=== PATIENT | female | born 1935 | race Two or more races ===

== ENCOUNTER 2018-06-13 20:09 | Emergency (ER) | payer MEDICARE, OTHER ==
[~2018-06-13] VITALS: Ht 154.9 cm; Wt 68.5 kg
[2018-06-13] MEDS ORDERED: IV NORMAL SALINE 1000ML BAG 1,000 ML IV ONE ×2 (20:45→22:45)
[2018-06-13] MEDS ORDERED: ONDANSETRON PF 4 MG/2 ML VIAL. IV ONE (20:45)
[2018-06-13] MEDS ORDERED: MORPHINE SULFATE 4 MG/ML VIAL. IV ONE (20:45)
[2018-06-13 20:50] LABS: BASO % 0 % (0-3); EOS % 0 % (0-3); HEMATOCRIT 30.8 % (36.0-47.0); HEMOGLOBIN 10.1 g/dL (12.0-15.5); LYMPH # 0.7 x10^3/uL (1.0-4.8); LYMPH % 7 % (24-48); MEAN CORPUSCULAR HEMOGLOBIN 29 pg (25-35); MEAN CORPUSCULAR HGB CONC 33 g/dL (31-37); MEAN CORPUSCULAR VOLUME 89 fL (79-100); MONO # 0.6 x10^3/uL (0.0-1.1); MONO % 6 % (0-9); NEUT # 7.9 x10^3uL (1.8-7.7); NEUT % 86 % (31-73); PLATELET COUNT 184 x10^3/uL (140-400); RED BLOOD COUNT 3.46 x10^6/uL (3.50-5.40); RED CELL DISTRIBUTION WIDTH 18.6 % (11.5-14.5); WHITE BLOOD COUNT 9.2 x10^3/uL (4.0-11.0)
[2018-06-13 21:05] LABS: CALCIUM 9.6 mg/dL (8.5-10.1); CREATININE 1.2 mg/dL (0.6-1.0); POTASSIUM 4.5 mmol/L (3.5-5.1)
[2018-06-13 21:12] LABS: ALBUMIN 2.5 g/dL (3.4-5.0); ALBUMIN/GLOBULIN RATIO 0.6 (1.0-1.7); TOTAL BILIRUBIN 0.6 mg/dL (0.2-1.0); TOTAL PROTEIN 6.7 g/dL (6.4-8.2)
[2018-06-13 21:21] LABS: CREATINE KINASE 35 U/L (26-192)
[2018-06-13 21:22] LABS: % BANDS 1 % (0-9); % LYMPHS 7 % (24-48); % METAS 1 % (0-0); % MONOS 3 % (0-10); % MYELOS 1 % (0-0); % SEGS 87 % (35-66); ANISOCYTOSIS SLIGHT; HYPOCHROMIA SLIGHT; NUCLEATED RBC 3; PLT ESTIMATE ADEQUATE (ADEQUATE); POIKILOCYTOSIS SLIGHT; POLYCHROMASIA SLIGHT; SPHEROCYTES OCC
[2018-06-13 21:23] LABS: ACANTHOCYTES OCC; HELMET CELLS OCC; HYPERSEGS PRESENT; SCHISTOCYTES OCC; TOXIC GRANULATION SLIGHT
[2018-06-13] MEDS ORDERED: MORPHINE SULFATE 10 MG/ML VIAL. IV ONE (21:30)
[2018-06-13] MEDS ORDERED: IOHEXOL 300 MG/ML 100ML VIAL. IV ONE (22:15)
[2018-06-13] MEDS ORDERED: CONTRAST GIVEN. MC PRN (22:15)
--- NOTE | 2018-06-13 22:21 | RAD ---
CT SCAN OF THE ABDOMEN AND PELVIS WITH IV CONTRAST. History: Right upper quadrant abdominal pain and pancreatic cancer Comparison:None. Procedure: Contiguous axial images of the abdomen and pelvis were performed after the administration of 60 cc of Omni 300 IV contrast and without oral contrast. CT Abdomen with contrast: Findings: There is previous median sternotomy. There is mild pleural effusions with adjacent infiltrates. The heart is dilated. There is a small amount of fluid around the liver and there is mild free air seen in the abdomen. There is mild pneumobilia in the liver and there is a stent in the common bile duct. There is a stent in the duodenum. There is a pancreatic head mass which is not well seen however there is loss of fat soft tissue planes around the pancreatic head is moderately dilated pancreatic duct. Body and tail of pancreas mildly atrophic. There are small cysts in the kidneys. The spleen is not well seen and likely removed. The small amount of fluid in the splenic bed. The proximal small bowel is dilated. The distal small bowel is collapsed and there is a fairly normal caliber of the colon. Exact transition zone is not seen. CT Pelvis with Contrast: Findings: The urinary bladder appears normal. There is mild free fluid. There is no lymphadenopathy. Impression: 1. Mid small bowel obstruction. 2. Mild free fluid and mild free air in the abdomen and pelvis likely secondary to a ruptured hollow viscus. Given the small bowel obstruction this is likely secondary to perforation of the small bowel. 3. Pancreatic head mass and stent in the common bile duct and duodenum. 4. Mild pleural effusions with adjacent infiltrates and dilated cardiomegaly. PQRS Compliance Statement: One or more of the following individualized dose reduction techniques were utilized for this examination: 1. Automated exposure control 2. Adjustment of the mA and/or kV according to patient size 3. Use of iterative reconstruction technique Electronically signed by: Cristobal Barrett III, MD (06/13/2018 10:17 PM) [facility]
[2018-06-13] MEDS ORDERED: fentaNYL PF VIAL 100 MCG/2 ML VIAL ONE (22:25)
[2018-06-13] MEDS ORDERED: PIPERACILLIN/TAZOBACTAM 3.375 GM in IV NORMAL SALINE 50ML 50 ML IV ONE (22:45)
[2018-06-13] MEDS ORDERED: HYDROmorphone 2 MG/ML VIAL IV ONE (22:45)
[2018-06-13] MEDS ORDERED: LABETALOL 20 MG/4 ML DISP.SYRIN. IVP ONE (22:45)
[2018-06-13] MEDS ORDERED: VANCOMYCIN 1.75 GM in IV NORMAL SALINE 500ML BAG 500 ML IV ONE (23:00)
[2018-06-13 23:42] VITALS: BP 52/26
[2018-06-13 23:56] LABS: PROTHROMBIN TIME PATIENT 15.2 SEC (11.7-14.0)
--- NOTE | 2018-06-13 23:56 | PDOC2 ---
CONSULT Date of Consult Date of Consult DATE: 06/13/18 TIME: 23:48 History of Present Illness Reason for Visit: The patient is an 83 year old female who reported to the ER due to acute abdominal pain. The pain became severe this evening, however the family states that she has been having problems with abdominal pain since March. She has inoperable pancreatic head cancer and is getting treated at . She had 2 stents placed apparently in the bile duct and duodenum. Since the second stent was placed she has had difficulty with eating and intermittent abdominal pain. She has also been receiving chemotherapy treatments. Past Medical History Past Medical History Pancreatic cancer, CAD Past Surgical History Past Surgical History CABG, biliary and duodenal stents Current Medications Current Medications Current Medications Sodium Chloride 1,000 ml @ 1,000 mls/hr 1X ONCE IV Last administered on 06/13/18at 20:51; Start 06/13/18 at 20:45; Stop 06/13/18 at 21:45; Status DC Morphine Sulfate (Morphine Sulfate) 4 mg 1X ONCE IV Last administered on 06/13/18at 20:50; Start 06/13/18 at 20:45; Stop 06/13/18 at 21:45; Status DC Ondansetron HCl (Zofran) 4 mg 1X ONCE IV Last administered on 06/13/18at 20:50; Start 06/13/18 at 20:45; Stop 06/13/18 at 21:45; Status DC Morphine Sulfate (Morphine Sulfate) 5 mg 1X ONCE IV Last administered on 06/13/18at 21:39; Start 06/13/18 at 21:30; Stop 06/13/18 at 21:45; Status DC Iohexol (Omnipaque 300 Mg/ml) 60 ml 1X ONCE IV Last administered on 06/13/18at 22:05; Start 06/13/18 at 22:15; Stop 06/13/18 at 22:16; Status DC Info (CONTRAST GIVEN -- Rx MONITORING) 1 each PRN DAILY PRN MC SEE COMMENTS; Start 06/13/18 at 22:15; Stop 06/15/18 at 22:14 Fentanyl Citrate (Fentanyl 2ml Vial) 100 mcg STK-MED ONCE .ROUTE ; Start 06/13/18 at 22:25; Stop 06/13/18 at 22:26; Status DC Labetalol HCl (Normodyne Iv Push) 10 mg 1X ONCE IVP ; Start 06/13/18 at 22:45; Stop 06/13/18 at 22:46; Status DC Piperacillin Sod/ Tazobactam Sod 3.375 gm/Sodium Chloride 50 ml @ 100 mls/hr 1X ONCE IV Last administered on 06/13/18at 23:00; Start 06/13/18 at 22:45; Stop 06/13/18 at 23:14; Status DC Vancomycin HCl (Vanco Per Pharmacy) 1 each PRN DAILY PRN MC SEE COMMENTS; Start 06/13/18 at 22:45; Status UNV Sodium Chloride 1,000 ml @ 125 mls/hr 1X ONCE IV ; Start 06/13/18 at 22:45; Stop 06/14/18 at 06:44 Hydromorphone HCl (Dilaudid) 1 mg 1X ONCE IV Last administered on 06/13/18at 22:55; Start 06/13/18 at 22:45; Stop 06/13/18 at 22:46; Status DC Vancomycin HCl 1.75 gm/Sodium Chloride 500 ml @ 250 mls/hr 1X ONCE IV Last administered on 06/13/18at 23:25; Start 06/13/18 at 23:00; Stop 06/14/18 at 00:59 Allergies Allergies: Coded Allergies: atorvastatin (Verified Allergy, Intermediate, 06/13/18) ezetimibe (Verified Allergy, Intermediate, 06/13/18) simvastatin (Verified Allergy, Intermediate, 06/13/18) Uncoded Allergies: DERMABOND (Allergy, Unknown, 06/13/18) ROS Review of System difficult to obtain, patient is severely ill and unable to provide ROS Physical Exam General: severe distress HEENT: Atraumatic Lungs: Clear to auscultation Heart: Regular rate Abdomen: Other (diffusely tender, peritoneal signs) Extremities: No clubbing, No cyanosis Skin: No rashes Neuro: Other (minimal speech) Vitals VITALS Vital Signs Date Time Temp Pulse Resp B/P (MAP) Pulse Ox O2 Delivery O2 Flow Rate FiO2 06/13/18 22:55 100 06/13/18 20:50 21 Room Air 06/13/18 20:15 98.4 70 223/100 (141) 98.4 Labs Labs Laboratory Tests Test 06/13/18 20:30 White Blood Count 9.2 x10^3/uL (4.0-11.0) Red Blood Count 3.46 x10^6/uL (3.50-5.40) Hemoglobin 10.1 g/dL (12.0-15.5) Hematocrit 30.8 % (36.0-47.0) Mean Corpuscular Volume 89 fL (79-100) Mean Corpuscular Hemoglobin 29 pg (25-35) Mean Corpuscular Hemoglobin Concent 33 g/dL (31-37) Red Cell Distribution Width 18.6 % (11.5-14.5) Platelet Count 184 x10^3/uL (140-400) Neutrophils (%) (Auto) 86 % (31-73) Lymphocytes (%) (Auto) 7 % (24-48) Monocytes (%) (Auto) 6 % (0-9) Eosinophils (%) (Auto) 0 % (0-3) Basophils (%) (Auto) 0 % (0-3) Neutrophils # (Auto) 7.9 x10^3uL (1.8-7.7) Lymphocytes # (Auto) 0.7 x10^3/uL (1.0-4.8) Monocytes # (Auto) 0.6 x10^3/uL (0.0-1.1) Eosinophils # (Auto) 0.0 x10^3/uL (0.0-0.7) Basophils # (Auto) 0.0 x10^3/uL (0.0-0.2) Segmented Neutrophils % 87 % (35-66) Band Neutrophils % 1 % (0-9) Lymphocytes % 7 % (24-48) Monocytes % 3 % (0-10) Metamyelocytes % 1 % (0-0) Myelocytes % 1 % (0-0) Nucleated Red Blood Cells 3 Hypersegmented Neutrophils Present Toxic Granulation Slight Platelet Estimate Adequate (ADEQUATE) Polychromasia Slight Hypochromasia Slight Poikilocytosis Slight Anisocytosis Slight Spherocytes Occ Helmet Cells Occ Ashanti Cells Acanthocytes Occ Schistocytes Occ Sodium Level 135 mmol/L (136-145) Potassium Level 4.5 mmol/L (3.5-5.1) Chloride Level 98 mmol/L (98-107) Carbon Dioxide Level 26 mmol/L (21-32) Anion Gap 11 (6-14) Blood Urea Nitrogen 26 mg/dL (7-20) Creatinine 1.2 mg/dL (0.6-1.0) Estimated GFR (Cockcroft-Gault) 43.0 BUN/Creatinine Ratio 22 (6-20) Glucose Level 157 mg/dL (70-99) Lactic Acid Level 1.5 mmol/L (0.4-2.0) Calcium Level 9.6 mg/dL (8.5-10.1) Magnesium Level 2.0 mg/dL (1.8-2.4) Total Bilirubin 0.6 mg/dL (0.2-1.0) Aspartate Amino Transf (AST/SGOT) 33 U/L (15-37) Alanine Aminotransferase (ALT/SGPT) 35 U/L (14-59) Alkaline Phosphatase 101 U/L (46-116) Creatine Kinase 35 U/L (26-192) Creatine Kinase MB (Mass) 0.9 ng/mL (0.0-3.6) Creatine Kinase MB Relative Index % (0-4) Troponin I Quantitative 0.034 ng/mL (0.000-0.055) GY-Iwq-E-Type Natriuretic Peptide 6584 pg/mL (0-449) Total Protein 6.7 g/dL (6.4-8.2) Albumin 2.5 g/dL (3.4-5.0) Albumin/Globulin Ratio 0.6 (1.0-1.7) Lipase 92 U/L (73-393) Laboratory Tests Test 06/13/18 20:30 White Blood Count 9.2 x10^3/uL (4.0-11.0) Red Blood Count 3.46 x10^6/uL (3.50-5.40) Hemoglobin 10.1 g/dL (12.0-15.5) Hematocrit 30.8 % (36.0-47.0) Mean Corpuscular Volume 89 fL (79-100) Mean Corpuscular Hemoglobin 29 pg (25-35) Mean Corpuscular Hemoglobin Concent 33 g/dL (31-37) Red Cell Distribution Width 18.6 % (11.5-14.5) Platelet Count 184 x10^3/uL (140-400) Neutrophils (%) (Auto) 86 % (31-73) Lymphocytes (%) (Auto) 7 % (24-48) Monocytes (%) (Auto) 6 % (0-9) Eosinophils (%) (Auto) 0 % (0-3) Basophils (%) (Auto) 0 % (0-3) Neutrophils # (Auto) 7.9 x10^3uL (1.8-7.7) Lymphocytes # (Auto) 0.7 x10^3/uL (1.0-4.8) Monocytes # (Auto) 0.6 x10^3/uL (0.0-1.1) Eosinophils # (Auto) 0.0 x10^3/uL (0.0-0.7) Basophils # (Auto) 0.0 x10^3/uL (0.0-0.2) Segmented Neutrophils % 87 % (35-66) Band Neutrophils % 1 % (0-9) Lymphocytes % 7 % (24-48) Monocytes % 3 % (0-10) Metamyelocytes % 1 % (0-0) Myelocytes % 1 % (0-0) Nucleated Red Blood Cells 3 Hypersegmented Neutrophils Present Toxic Granulation Slight Platelet Estimate Adequate (ADEQUATE) Polychromasia Slight Hypochromasia Slight Poikilocytosis Slight Anisocytosis Slight Spherocytes Occ Helmet Cells Occ Ashanti Cells Acanthocytes Occ Schistocytes Occ Sodium Level 135 mmol/L (136-145) Potassium Level 4.5 mmol/L (3.5-5.1) Chloride Level 98 mmol/L (98-107) Carbon Dioxide Level 26 mmol/L (21-32) Anion Gap 11 (6-14) Blood Urea Nitrogen 26 mg/dL (7-20) Creatinine 1.2 mg/dL (0.6-1.0) Estimated GFR (Cockcroft-Gault) 43.0 BUN/Creatinine Ratio 22 (6-20) Glucose Level 157 mg/dL (70-99) Lactic Acid Level 1.5 mmol/L (0.4-2.0) Calcium Level 9.6 mg/dL (8.5-10.1) Magnesium Level 2.0 mg/dL (1.8-2.4) Total Bilirubin 0.6 mg/dL (0.2-1.0) Aspartate Amino Transf (AST/SGOT) 33 U/L (15-37) Alanine Aminotransferase (ALT/SGPT) 35 U/L (14-59) Alkaline Phosphatase 101 U/L (46-116) Creatine Kinase 35 U/L (26-192) Creatine Kinase MB (Mass) 0.9 ng/mL (0.0-3.6) Creatine Kinase MB Relative Index % (0-4) Troponin I Quantitative 0.034 ng/mL (0.000-0.055) FV-Bqa-I-Type Natriuretic Peptide 6584 pg/mL (0-449) Total Protein 6.7 g/dL (6.4-8.2) Albumin 2.5 g/dL (3.4-5.0) Albumin/Globulin Ratio 0.6 (1.0-1.7) Lipase 92 U/L (73-393) Images Images CT abdomen/pelvis: Impression: 1. Mid small bowel obstruction. 2. Mild free fluid and mild free air in the abdomen and pelvis likely secondary to a ruptured hollow viscus. Given the small bowel obstruction this is likely secondary to perforation of the small bowel. 3. Pancreatic head mass and stent in the common bile duct and duodenum. 4. Mild pleural effusions with adjacent infiltrates and dilated cardiomegaly. Assessment/Plan Assessment/Plan 83 year old female, history of inoperable pancreatic head cancer, receiving ch emotherapy, acute abdominal pain with pneumoperitoneum, peritonitis. I discussed the situation with the family and explained the grave prognosis. Generally surgery is recommend for suspected perforated viscus, however given her clinical situation she is very high risk with significant morbidity and potential mortality. If she survived the surgery she could have a prolonged and difficult recovery potentially with healing problems resulting from her recent chemotherapy treatments. The family understands and would like to proceed with surgery. OLIVIA ALEGRIA MD Jun 13, 2018 23:56
--- NOTE | 2018-06-14 00:21 | PHYS DOC ---
Past Medical History Past Medical History: CAD, Cancer, Heart Disease, Hypertension, Pancreatitis Additional Past Medical Histor: PANCREATIC CANCER, CHEMOTHERAPY ONCE A WEEK X3, AND 1 WEEK OFF. (ANITA CAVAZOS APRN) Alcohol Use: None Additional Information: PT DENIES ALCOHOL USE OR SMOKING Drug Use: None (ANITA CAVAZOS APRN) Adult General Chief Complaint Chief Complaint: ABDOMINAL PAIN HPI HPI Patient is a 83 year old female with a history of pancreatic cancer, hypertens ion, who presents to the ED via EMS, most of the information I'm getting is from nursing staff. They state patient has had moderate right sided abdominal pain that began 30 minutes prior to coming to the ED with no BM for three days. Patient appears to be in distress, she is crying stating "i am dying. i am in pain" patient repeating this statement multiple times. She is a very poor historian and not able to give up much information.No family present. (ANITA CAVAZOS APRN) Review of Systems Review of Systems Constitutional: Denies fever or chills [] Eyes: Denies change in visual acuity, redness, or eye pain [] HENT: Denies nasal congestion or sore throat [] Respiratory: Denies cough or shortness of breath [] Cardiovascular: No additional information not addressed in HPI [] GI: Reports abdominal pain denies nausea, vomiting, bloody stools or diarrhea [] : Denies dysuria or hematuria [] Musculoskeletal: Denies back pain or joint pain [] Integument: Denies rash or skin lesions [] Neurologic: Denies headache, focal weakness or sensory changes [] All other systems were reviewed and found to be within normal limits, except as documented in this note. (ANITA CAVAZOS APRN) Current Medications Current Medications Current Medications Medications (Trade) Dose Ordered Sig/Yessi Start Time Stop Time Status Last Admin Dose Admin Fentanyl Citrate (Fentanyl 2ml Vial) 100 mcg STK-MED ONCE 06/13/18 22:25 06/13/18 22:26 DC Hydromorphone HCl (Dilaudid) 1 mg 1X ONCE 06/13/18 22:45 06/13/18 22:46 DC 06/13/18 22:55 1 MG Info (CONTRAST GIVEN -- Rx MONITORING) 1 each PRN DAILY PRN 06/13/18 22:15 06/15/18 22:14 Iohexol (Omnipaque 300 Mg/ml) 60 ml 1X ONCE 06/13/18 22:15 06/13/18 22:16 DC 06/13/18 22:05 60 ML Labetalol HCl (Normodyne Iv Push) 10 mg 1X ONCE 06/13/18 22:45 06/13/18 22:46 DC Morphine Sulfate (Morphine Sulfate) 5 mg 1X ONCE 06/13/18 21:30 06/13/18 21:45 DC 06/13/18 21:39 5 MG Ondansetron HCl (Zofran) 4 mg 1X ONCE 06/13/18 20:45 06/13/18 21:45 DC 06/13/18 20:50 4 MG Piperacillin Sod/ Tazobactam Sod 3.375 gm/Sodium Chloride 50 ml @ 100 mls/hr 1X ONCE 06/13/18 22:45 06/13/18 23:14 DC 06/13/18 23:00 100 MLS/HR Sodium Chloride 1,000 ml @ 125 mls/hr 1X ONCE 06/13/18 22:45 06/14/18 06:44 Vancomycin HCl (Vanco Per Pharmacy) 1 each PRN DAILY PRN 06/13/18 22:45 06/14/18 02:05 1 EACH Vancomycin HCl (Vancomycin Trough Level) 1 each 1X ONCE 06/15/18 23:00 06/15/18 23:01 Vancomycin HCl 1.75 gm/Sodium Chloride 500 ml @ 250 mls/hr 1X ONCE 06/13/18 23:00 06/14/18 00:59 DC 06/13/18 23:25 250 MLS/HR Vancomycin HCl 1 gm/Sodium Chloride 250 ml @ 250 mls/hr Q24H 06/14/18 23:30 (JANN ODEN MD) Allergies Allergies Allergies Coded Allergies Type Severity Reaction Last Updated Verified atorvastatin Allergy Intermediate 06/13/18 Yes ezetimibe Allergy Intermediate 06/13/18 Yes simvastatin Allergy Intermediate 06/13/18 Yes Uncoded Allergies Type Severity Reaction Last Updated Verified DERMABOND Allergy Unknown 06/13/18 (JANN ODEN MD) Physical Exam Physical Exam Constitutional: Well developed, well nourished, no acute distress, non-toxic appearance. [] HENT: Normocephalic, atraumatic, bilateral external ears normal, oropharynx moist, no oral exudates, nose normal. [] Eyes: PERRLA, EOMI, conjunctiva normal, no discharge. [] Neck: Normal range of motion, no tenderness, supple, no stridor. [] Cardiovascular:Heart rate regular rhythm, no murmur. Lungs & Thorax: Bilateral breath sounds clear to auscultation [] Abdomen: Bowel sounds normal, soft, firm abdomen, moderate tenderness diffusely throughout the abdomen was on the lower abdomen no masses, no pulsatile masses. [] Skin: Warm, dry, no erythema, no rash. Port-A-Cath noted to the right upper chest. Back: No tenderness, no CVA tenderness. [] Extremities: No tenderness, no cyanosis, no clubbing, ROM intact, no edema. [] Neurologic: Alert and oriented X 3, normal motor function, normal sensory function, no focal deficits noted. [] Psychologic: Affect normal, judgement normal, mood normal. [] (ANITA CAVAZOS APRN) Current Patient Data Vital Signs Vital Signs Date Time Temp Pulse Resp B/P (MAP) Pulse Ox O2 Delivery O2 Flow Rate FiO2 06/13/18 23:42 66 52/26 (35) 06/13/18 23:25 99 Room Air 06/13/18 21:20 25 06/13/18 20:15 98.4 98.4 (JANN ODEN MD) Lab Values Laboratory Tests Test 06/13/18 20:30 06/13/18 23:40 White Blood Count 9.2 x10^3/uL (4.0-11.0) Red Blood Count 3.46 x10^6/uL (3.50-5.40) L Hemoglobin 10.1 g/dL (12.0-15.5) L Hematocrit 30.8 % (36.0-47.0) L Mean Corpuscular Volume 89 fL (79-100) Mean Corpuscular Hemoglobin 29 pg (25-35) Mean Corpuscular Hemoglobin Concent 33 g/dL (31-37) Red Cell Distribution Width 18.6 % (11.5-14.5) H Platelet Count 184 x10^3/uL (140-400) Neutrophils (%) (Auto) 86 % (31-73) H Lymphocytes (%) (Auto) 7 % (24-48) L Monocytes (%) (Auto) 6 % (0-9) Eosinophils (%) (Auto) 0 % (0-3) Basophils (%) (Auto) 0 % (0-3) Neutrophils # (Auto) 7.9 x10^3uL (1.8-7.7) H Lymphocytes # (Auto) 0.7 x10^3/uL (1.0-4.8) L Monocytes # (Auto) 0.6 x10^3/uL (0.0-1.1) Eosinophils # (Auto) 0.0 x10^3/uL (0.0-0.7) Basophils # (Auto) 0.0 x10^3/uL (0.0-0.2) Segmented Neutrophils % 87 % (35-66) H Band Neutrophils % 1 % (0-9) Lymphocytes % 7 % (24-48) L Monocytes % 3 % (0-10) Metamyelocytes % 1 % (0-0) H Myelocytes % 1 % (0-0) H Nucleated Red Blood Cells 3 Hypersegmented Neutrophils Present Toxic Granulation Slight Platelet Estimate Adequate (ADEQUATE) Polychromasia Slight Hypochromasia Slight Poikilocytosis Slight Anisocytosis Slight Spherocytes Occ Helmet Cells Occ Ashanti Cells Acanthocytes (Spur Cells) Occ Schistocytes Occ Sodium Level 135 mmol/L (136-145) L Potassium Level 4.5 mmol/L (3.5-5.1) Chloride Level 98 mmol/L (98-107) Carbon Dioxide Level 26 mmol/L (21-32) Anion Gap 11 (6-14) Blood Urea Nitrogen 26 mg/dL (7-20) H Creatinine 1.2 mg/dL (0.6-1.0) H Estimated GFR (Cockcroft-Gault) 43.0 BUN/Creatinine Ratio 22 (6-20) H Glucose Level 157 mg/dL (70-99) H Lactic Acid Level 1.5 mmol/L (0.4-2.0) Calcium Level 9.6 mg/dL (8.5-10.1) Magnesium Level 2.0 mg/dL (1.8-2.4) Total Bilirubin 0.6 mg/dL (0.2-1.0) Aspartate Amino Transferase (AST) 33 U/L (15-37) Alanine Aminotransferase (ALT) 35 U/L (14-59) Alkaline Phosphatase 101 U/L (46-116) Creatine Kinase 35 U/L (26-192) Creatine Kinase MB (Mass) 0.9 ng/mL (0.0-3.6) Creatine Kinase MB Relative Index % (0-4) Troponin I Quantitative 0.034 ng/mL (0.000-0.055) EL-Mnx-B-Type Natriuretic Peptide 6584 pg/mL (0-449) H Total Protein 6.7 g/dL (6.4-8.2) Albumin 2.5 g/dL (3.4-5.0) L Albumin/Globulin Ratio 0.6 (1.0-1.7) L Lipase 92 U/L (73-393) Prothrombin Time 15.2 SEC (11.7-14.0) H Prothrombin Time INR 1.2 (0.8-1.1) H Laboratory Tests 06/13/18 20:30 Laboratory Tests 06/13/18 20:30 (JANN ODEN MD) EKG EKG [address] Silver sinus rate them heart rate 63 no STEMI[] (ANITA CAVAZOS APRN) Radiology/Procedures Radiology/Procedures []PROCEDURE: CT ABD PELV W/ IV CONTRST ONLY CT SCAN OF THE ABDOMEN AND PELVIS WITH IV CONTRAST. History: Right upper quadrant abdominal pain and pancreatic cancer Comparison:None. Procedure: Contiguous axial images of the abdomen and pelvis were performed after the administration of 60 cc of Omni 300 IV contrast and without oral contrast. CT Abdomen with contrast: Findings: There is previous median sternotomy. There is mild pleural effusions with adjacent infiltrates. The heart is dilated. There is a small amount of fluid around the liver and there is mild free air seen in the abdomen. There is mild pneumobilia in the liver and there is a stent in the common bile duct. There is a stent in the duodenum. There is a pancreatic head mass which is not well seen however there is loss of fat soft tissue planes around the pancreatic head is moderately dilated pancreatic duct. Body and tail of pancreas mildly atrophic. There are small cysts in the kidneys. The spleen is not well seen and likely removed. The small amount of fluid in the splenic bed. The proximal small bowel is dilated. The distal small bowel is collapsed and there is a fairly normal caliber of the colon. Exact transition zone is not seen. CT Pelvis with Contrast: Findings: The urinary bladder appears normal. There is mild free fluid. There is no lymphadenopathy. Impression: 1. Mid small bowel obstruction. 2. Mild free fluid and mild free air in the abdomen and pelvis likely secondary to a ruptured hollow viscus. Given the small bowel obstruction this is likely secondary to perforation of the small bowel. 3. Pancreatic head mass and stent in the common bile duct and duodenum. 4. Mild pleural effusions with adjacent infiltrates and dilated cardiomegaly. PQRS Compliance Statement: One or more of the following individualized dose reduction techniques were utilized for this examination: 1. Automated exposure control 2. Adjustment of the mA and/or kV according to patient size 3. Use of iterative reconstruction technique Electronically signed by: Kian Sabillon III, MD (06/13/2018 10:17 PM) [facility] DICTATED and SIGNED BY: KIAN SABILLON III, MD DATE: 06/13/182216 (ANITA CAVAZOS APRN) Course & Med Decision Making Course & Med Decision Making Pertinent Labs and Imaging studies reviewed. (See chart for details) This is a 83-year-old female patient with history of pancreatic cancer who presents to the ED today with sudden onset of abdominal pain. Patient is a poor historian, all she is saying she is she is dying and is in a lot of pain. No family present. CBC CMP with no acute findings. CT of the abdomen and pelvic was noted for- Mid small bowel obstruction. Mild free fluid and mild free air in the abdomen and pelvis likely secondary to a ruptured hollow viscus. Given the small bowel obstruction this is likely secondary to perforation of the small bowel. Pancreatic head mass and stent in the common bile duct and duodenum. Mild pleural effusions with adjacent infiltrates and dilated cardiomegaly. Spoke with Dr. Sears regarding patient's CT results, he stated he'll be in the ED right away. He did come to the ED right away, so family was present. They talked at length, they agreed patient to be made DNR. Consulted with who accepted patient for admission [address] Oden and I declared patient . [address] Alo GIBBS who agreed to sign the certificate. (ANITA CAVAZOS APRN) Course & Med Decision Making i was at bedside for TOD. condolences offered. (JANN ODEN MD) Dragon Disclaimer Dragon Disclaimer This electronic medical record was generated, in whole or in part, using a voice recognition dictation system. (ANITA CAVAZOS APRN) Departure Departure Impression: Primary Impression: Perforated bowel Additional Impression: Small bowel obstruction Disposition: 20 Condition: Referrals: MAURO HASTINGS MD (PCP) Problem Qualifiers ANITA CAVAZOS APRN Jun 14, 2018 00:21 JANN ODEN MD Jun 14, 2018 05:00
[2018-06-14] MEDS: VANCOMYCIN PER PHARMACY MC PRN ×2 (01:54→02:05)
--- NOTE | 2018-06-14 02:02 | NUR ---
Pharmacy Vancomycin Dosing Note S:Consulted to monitor and dose vancomycin started 06/13/18. O:MELISSA JAIMES is a 83 year old F with PERFORATED BOWEL/SMALL BOWEL OBSTRUCTION ABDOMINAL PAIN Height: 5 feet, 1 inches Weight: 68.175510 kg [place] Body Weight: 47.80 Adjusted Body Weight: 56.08 Dosing Weight: Actual Other Antibiotics: ZOSYN 3.375GM IV X1 IN ER (06/13) LABS: Last BUN: 26 Last Creatinine: 1.2 Creatinine Clearance: 32 mL/min Last WBC: 9.2 Last Procalcitonin: Tmax (past 24 hours): Microbiology: I/O: Drug Levels: Last level: on at Last dose given at Vancomycin Dosing: Loading Dose: 1750 mg x1 06/13/185 Dosing Weight: Actual Target Trough: 15-20 A: Based on: Actual Wt and CrCl P: 1. 06/14/18 2330 Vancomycin 1000 mg IV q24h 2. Follow up Trough level on 06/15/18 at 2300 3. Pharmacy will continue to monitor, follow and adjust therapy as needed. PADDY NEWBERRY RPH, 06/14/18 0202 Signed: 06/14/18 at 0203 by PADDY NEWBERRY RPH PHA
--- NOTE | 2018-06-14 06:36 | EKG ---
[facility] [address] [place] [id number] Test Date: 2018-06-13 Test Time: 21:18:54 Pat Name: MELISSA JAIMES Department: Room: Gender: F Bariatric Nurse: : [id number] Requested By: ANITA CAVAZOS Order Number: [id number] Reading MD: Luc Flores Measurements Intervals [place] Rate: 63 P: -90 HI: 118 QRS: -164 QRSD: 92 T: 116 QT: 414 QTc: 427 Interpretive Statements SINUS RHYTHM NONSPECIFIC ST-T WAVE CHANGES Q WAVE IN LEAD V1. Electronically Signed On 06-20-2018 11:21:36 CDT by Luc Flores
[2018-06-14] MEDS ORDERED: VANCOMYCIN 1 GM in IV NORMAL SALINE 250ML 250 ML IV SCH (23:30)
== END 2018-06-14 02:00 | disposition expired ==
LOC: ER 20:09
DX: K56.609 Unspecified intestinal obstruction, unspecified as to partial versus complete obstruction (principal); K63.1 Perforation of intestine (nontraumatic); J90 Pleural effusion, not elsewhere classified; I25.10 Atherosclerotic heart disease of native coronary artery without angina pectoris; I11.9 Hypertensive heart disease without heart failure; Z88.8 Allergy status to other drugs, medicaments and biological substances
CPT/HCPCS: 36415; 74177; 80053; 82553; 83605; 83690; 83735; 83880; 84484; 85007; 85025; 85610; 87040; 93005; 96365; 96368; 96375; 96376; 99285; J1170; J2270; J2405; J2543; J3370; J7030; J7040; Q9967; 96367